=== PATIENT | female | born 1995 | race Caucasian/White ===

== ENCOUNTER 2018-05-13 22:40 | Emergency (ER) | payer MEDICAID, OTHER ==
[~2018-05-13] VITALS: Ht 160 cm; Wt 62.7 kg
[2018-05-13 23:07] VITALS: Ht 160 cm; Wt 62.7 kg
--- NOTE | 2018-05-14 01:24 | ERD ---
ER Documentation Chief Complaint Chief Complaint LRQ PAIN X 2 DAYS HPI This is a 22-year-old female with a nonsignificant past medical history presents ED with complaints of right lower quadrant abdominal pain that is been off and on for the past 3 months. Patient states that the pain started today and she rates it at a 6 out of 10 states that it waxes and wanes in severity. Denies dysuria, hematuria, vaginal bleeding, vaginal discharge, back pain, fever, chills, nausea, vomiting, diarrhea, constipation, hemoptysis, melena, he matochezia, hematemesis, chest pain, shortness breath and all other symptoms. Denies chance of being ROS All systems reviewed and are negative except as per history of present illness. Medications Home Meds Active Scripts Acetaminophen* (Tylophen*) 500 Mg Capsule, 1 CAP PO Q6H PRN for PAIN AND OR ELEVATED TEMP, #20 CAP Prov:ESTER YOUNG PA-C 05/14/18 PMhx/Soc Hx Alcohol Use: No Hx Substance Use: No Hx Tobacco Use: No Smoking Status: Never smoker FmHx Family History: No diabetes Physical Exam Vitals Vital Signs Date Temp Pulse Resp B/P (MAP) Pulse Ox O2 O2 Flow FiO2 Time Delivery Rate 05/13/18 98.2 81 16 121/74 95 23:07 (90) Physical Exam Physical Exam Vitals signs: Reviewed by me. General: Well developed, well nourished, in no acute distress. Patient is awake and alert. Head: Normocephalic, atraumatic. Eyes: Normal conjunctiva, Pupils PERRLA, EOM intact grossly ENT: Pharynx is clear, Moist mucous membranes, external ears, nose and mouth normal Neck: Supple, no masses, lymphadenopathy or JVD Respiratory: Clear to auscultation bilaterally with no wheezing, rhonchi, rales, no distress Cardiovascular: RRR, no murmurs, rubs, or gallops Abdominal: Soft, nondistended, no peritoneal signs, no rigidity, no surgical abd omen, bowel sounds present all 4 quadrants, mild tenderness palpation in the right lower quadrants, nontender in all the quadrants, no rebound tenderness, Miller sign negative Back: No midline tenderness. No flank tenderness Neurologic: Alert and oriented, moving all extremities, normal speech, no focal weakness, no cerebellar signs. Normal mentation Skin: warm and dry, No rash Psych: Normal mood Result Diagram: 05/14/18 0119 05/14/18 0119 Results 24 hrs Laboratory Tests Test 05/14/18 01:19 White Blood Count 8.7 10^3/ul Red Blood Count 4.07 10^6/ul Hemoglobin 11.9 g/dl Hematocrit 36.5 % Mean Corpuscular Volume 89.7 fl Mean Corpuscular Hemoglobin 29.2 pg Mean Corpuscular Hemoglobin Concent 32.6 g/dl Red Cell Distribution Width 12.9 % Platelet Count 254 10^3/UL Mean Platelet Volume 10.3 fl Immature Granulocytes % 0.300 % Neutrophils % 42.5 % Lymphocytes % 47.8 % Monocytes % 6.3 % Eosinophils % 2.6 % Basophils % 0.5 % Nucleated Red Blood Cells % 0.0 /100WBC Immature Granulocytes # 0.030 10^3/ul Neutrophils # 3.7 10^3/ul Lymphocytes # 4.2 10^3/ul Monocytes # 0.6 10^3/ul Eosinophils # 0.2 10^3/ul Basophils # 0.0 10^3/ul Nucleated Red Blood Cells # 0.0 10^3/ul Urine Color YELLOW Urine Clarity CLEAR Urine pH 8.0 Urine Specific [place] 1.018 Urine Ketones NEGATIVE mg/dL Urine Nitrite NEGATIVE mg/dL Urine Bilirubin NEGATIVE mg/dL Urine Urobilinogen 1+ mg/dL Urine Leukocyte Esterase NEGATIVE John/ul Urine Hemoglobin NEGATIVE mg/dL Urine Glucose NEGATIVE mg/dL Urine Total Protein NEGATIVE mg/dl Urine Test NEGATIVE Sodium Level 141 mmol/L Potassium Level 4.0 mmol/L Chloride Level 100 mmol/L Carbon Dioxide Level 27 mmol/L Anion Gap 14 Blood Urea Nitrogen 11 mg/dl Creatinine 0.53 mg/dl Est Glomerular Filtrat Rate mL/min > 60 mL/min Glucose Level 92 mg/dl Calcium Level 9.2 mg/dl Total Bilirubin 0.1 mg/dl Direct Bilirubin 0.00 mg/dl Indirect Bilirubin 0.1 mg/dl Aspartate Amino Transf (AST/SGOT) 31 IU/L Alanine Aminotransferase (ALT/SGPT) 30 IU/L Alkaline Phosphatase 72 IU/L Total Protein 7.5 g/dl Albumin 4.3 g/dl Globulin 3.20 g/dl Albumin/Globulin Ratio 1.34 Lipase 84 U/L [facility] EKG, MONITORS, & DIAGNOSTIC IMAGING: [place] [address] Radiology Main Line: [phone] DIAGNOSTIC IMAGING REPORT Patient: MARY CINTRON : 1995 Age: 22 Sex: F MR #: [id number] DOS: 05/14/18 0101 Ordering MD: ESTER YOUNG PA-C Location: [facility]TE Room/Bed: PROCEDURE: CT Abdomen and Pelvis without contrast. CLINICAL INDICATION: Abdominal/right pelvic pain. TECHNIQUE: Unenhanced CT scan of the abdomen and pelvis was performed on a mu lti-detector high-resolution CT scanner. Coronal and sagittal reformatted images were obtained from the axial source images. Images were reviewed on a high-resolution PACS workstation. The total exam CTDI equals 6 point a mGy and the total exam DLP equals 393.6 mGy-cm. DICOM images are available. One or more of the following dose reduction techniques were utilized: 1.) Automated exposure control 2.) Adjustment of the mA +/- kV according to patient's size 3.) Use of iterative reconstruction technique. COMPARISON: Concurrent pelvic ultrasound. FINDINGS: Evaluation of the solid organs and viscera is technically limited in the absence of contrast. Partially visualized minimal bibasilar pulmonary subsegmental atelectasis. Heart base appears normal. Systemic vasculature appears grossly normal. No pathologic lymphadenopathy identified by imaging criteria. Liver demonstrates normal size and contour, with a 1.5 cm cyst versus hemangioma in the posterior left hepatic lobe (axial image 32, sagittal image 61) and multiple scattered hypoattenuating lesions too small to characterize, likely reflecting cysts. The gallbladder is decompressed without identifiable pericholecystic inflammatory change or extrahepatic biliary ductal dilatation. Pancreas demonstrates normal contour, without identifiable peripancreatic inflammatory change. Spleen is normal in size. Adrenal glands appear normal. Tiny sliding hiatal hernia involving the gastric cardia. The bowel is unobstructed without free air or focal mesenteric inflammatory change. The appendix appears normal. Scattered small left colonic diverticuli without evidence of acute diverticulitis. Unenhanced kidneys demonstrate a 2.1 x 1.5 x 1.6 cm right upper pole hypoattenuating lesion not meeting imaging criteria for simple cyst (axial image 64, coronal image 58, sagittal image 40), as well as a simple - appearing 4.5 cm left upper pole cyst. No nephrolithiasis nor hydronephrosis. The ureters run unobstructed to an incompletely distended urinary bladder which is poorly evaluated on today's exam, with suggestion of mild - moderate diffuse bladder wall thickening which may reflect cystitis in the presence of mild perivesical fat stranding (axial image 150, coronal image 44) and mild dependent pelvic free fluid. The uterus appears age appropriate. No pathologic adnexal mass identified in the absence of contrast. Osseous structures are intact. Superficial soft tissues and musculature appear normal. IMPRESSION: 1. Probable mild - moderate diffuse urinary bladder wall thickening, which may reflect cystitis in the presence of mild perivesical edema and pelvic free fluid, suboptimally evaluated due to incomplete bladder distension. Clinical correlation recommended with consideration for further evaluation with cystoscopy. 2. Right renal upper pole 2.1 cm hypoattenuating mass not meeting imaging criteria for simple cyst. Simple - appearing 4.5 cm left upper pole cyst. Clinical correlation recommended with consideration for further evaluation with renal ultrasound. 3. No nephrolithiasis nor hydronephrosis. 4. Mild left colonic diverticulosis without evidence of acute diverticulitis. The bowel is unobstructed without evidence of perforation or abscess, and the appendix appears normal. 5. Tiny sliding hiatal hernia. 6. Cyst versus hemangioma in the posterior left hepatic lobe with multiple scattered probable hepatic cysts which are too small to characterize. [place] [address] Radiology Main Line: [phone] DIAGNOSTIC IMAGING REPORT Patient: MARY CINTRON : 1995 Age: 22 Sex: F [id number] [id number] DOS: 05/14/18 0101 Ordering MD: ESTER YUONG PA-C Location: FTE Room/Bed: PROCEDURE: Pelvic ultrasound color-flow Doppler of the adnexa. CLINICAL INDICATION: Right sided pelvic pain TECHNIQUE: Multiple sagittal, oblique and transverse real time images were obtained of the lower abdomen and pelvis using a transabdominal as well a transvaginal approach. Color-flow Doppler of the adnexa was performed. COMPARISON: CT abdomen pelvis same day FINDINGS: The uterus is normal limits in size measuring 5.78 x 3.85 x 5.58 cm. Myometrial echoes are homogeneous without focal lesions. Endometrium homogeneous without focal lesion prominent thickness maximal AP diameter 1.08 cm. Ovaries are normal in size the right measuring 4.37 x 1.29 x 2.87 cm and the left measuring 2.98 x 3.36 x 3.15 cm. No ovarian masses. Flow to both ovaries without ultrasonic evidence of ovarian torsion. Small free fluid in the cul-de-sac. No adnexal masses. IMPRESSION: 1. Unremarkable uterus and ovaries without ultrasonic evidence of ovarian torsion. 2. Mild free fluid in the cul-de-sac. 3. No adnexal masses. RPTAT:AAJJ Physician Isidoro Date Time Electronically viewed and signed by Gely Rodriguez Physician on 05/14/2018 03:15 BM/ CC: ESTER YOUNG PA-C [id number] RPTAT: HSAN Liliya Mathias Physician Date Time Electronically viewed and signed by Liliya Mathias Physician on 05/14/2018 03:07 xN/ CC: ESTER YOUNG PA-C [id number] LAB INTERPRETATION: CBC shows no evidence of hemorrhage or infection, hemoglobin mildly decreased at 11.9, hematocrit mildly decreased 36.5 Chemistry shows no evidence of significant electrolyte abnormalities or renal insufficiency Liver function test shows no evidence of acute biliary or hepatic dysfunction Lipase shows no evidence of acute pancreatitis UA unremarkable Urine negative ER COURSE: The patient was offered medication for pain but refuses The patient was stable throughout ED course. I kept the patient and/or family informed of laboratory and diagnostic imaging results throughout the emergency room course. The patient was promptly evaluated and a treatment plan was devised based on H&P and other data. This plan was discussed with the patient who agreed and had no further questions or concerns prior to discharge. MEDICAL DECISION MAKING: Non- woman presenting with abdominal pain. test is negative. Considered causes of female-specific abdominal pain including pelvic inflammatory disease, tubo-ovarian abscess, Beon-Mwkn-Kiztyk, and ovarian torsion. Also considered causes of abdominal pain that are not gender-specific (e.g., appendicitis, volvulus, small bowel obstruction, mesenteric adenitis, acute cholecystitis/choledocholithiasis and other biliary pathology, etc.). Patient well-appearing with normal vital signs. No peritoneal signs and abdomen benign on multiple repeat examinations. Pt well hydrated. Laboratory testing and imaging here reviewed and normal. Patient given strict return precautions for worsening pain, inability to eat/drink, fevers (temperature over 100.4F), or other concerns. Prior to discharge all questions answered. She agrees with treatment plan and understands strict return precautions. Follow-up for repeat abdominal exam within 12 hours. DISPOSITION PLAN: We discussed follow up with the patient's primary care doctor within 24 to 48 hours. Patient counseled regarding my diagnostic impression and care plan. Prior to discharge all questions answered. Pt agrees with treatment plan and understands strict return precautions. Precautionary instructions provided including instructions to return to the ER if not improving or for any worsening or changing symptoms or concerns. SPECIALIST FOLLOW UP RECOMMENDED: None Patient has been advised to follow up with primary care in 1-2 days. Disclaimer: Inadvertent spelling and grammatical errors are likely due to EHR/dictation software use and do not reflect on the overall quality of patient care. Also, please note that the electronic time recorded on this note does not necessarily reflect the actual time of the patient encounter. Departure Diagnosis: Primary Impression: Abdominal pain Abdominal location: right lower quadrant Qualified Codes: R10.31 - Right lower quadrant pain Condition: Stable Patient Instructions: Abdominal Pain Referrals: [facility] Additional Instructions: Paciente aconseja volver a Departamento de urgencias inmediatamente para sntomas nuevos o que empeoran . Paciente aconseja posteriores con el PCP en 1-2 stoddard . Paciente verbaliza la comprehensin y est de acuerdo con el tratamiento y el curso de accin. Si el paciente no tiene ninguna de atencin primaria pueden seguir con [facility] [address] [place] [address] o [facility] + [address] [address] ESTER YOUNG PA-C May 14, 2018 01:24
[2018-05-14] MEDS ORDERED: ACET500C5 PO (01:55)
[2018-05-14 03:50] VITALS: PULSE 88; RESP 20
== END 2018-05-14 03:30 | disposition home or self-care (01) ==
LOC: FTE 22:40
DX: R10.31 Right lower quadrant pain (principal); R10.2 Pelvic and perineal pain
CPT/HCPCS: 36415; 74176; 76830; 76856; 80053; 81003; 83690; 84703; 85025; Z7502

== ENCOUNTER 2018-09-07 15:15 | Emergency (ER) | payer MEDICAID ==
[~2018-09-07] VITALS: Ht 157.5 cm; Wt 59.4 kg
[~2018-09-07 15:15] MED LIST: ACET500C5 PO
[2018-09-07 15:20] VITALS: BP 121/67; PULSE 79; RESP 16; Ht 157.5 cm; Wt 59.4 kg
[2018-09-07] MEDS ORDERED: ONDANSETRON (ODT) 4 MG TAB ODT STA (15:56)
[2018-09-07] MEDS ORDERED: IBUPROFEN 800 MG TAB PO ONE (16:00)
[2018-09-07] MEDS ORDERED: ONDA4TAB14 PO (16:27)
[2018-09-07] MEDS ORDERED: IBUP-1542 PO (16:27)
--- NOTE | 2018-09-07 16:31 | ERD ---
ER Documentation Chief Complaint Chief Complaint HEADACHE WITH VOMITING SINCE LAST NIGHT HPI 23-year-old presents for headache and vomiting x1 day. She states that the headache is rated 8 out of 10 initially. Pain is 6 out of 10. She has not tried any medications. She describes the pain as sharp. Pain is on and off lasting a time. She vomited a few times. No blood noted in the vomit. She denies fevers or chills. Denies any neck pain. No significant past medical history. No other modifying factors noted. No other treatments tried at home. She has had prior similar headaches in the past. ROS All systems reviewed and are negative except as per history of present illness. Medications Home Meds Active Scripts Ondansetron (Ondansetron Odt) 4 Mg Tab.rapdis, 4 MG PO Q6H PRN for NAUSEA AND/OR VOMITING, #15 TAB Prov:REX GAMEZ 09/07/18 Ibuprofen* (Motrin*) 600 Mg Tab, 600 MG PO Q6H PRN for PAIN AND OR ELEVATED TEMP, #30 TAB Prov:GAMEZREX 09/07/18 Acetaminophen* (Tylophen*) 500 Mg Capsule, 1 CAP PO Q6H PRN for PAIN AND OR ELEVATED TEMP, #20 CAP Prov:ESTER YOUNG PA-C 05/14/18 Allergies Allergies: Coded Allergies: No Known Allergy (Unverified , 09/07/18) PMhx/Soc Medical and Surgical Hx: pt denies Medical Hx, pt denies Surgical Hx Hx Alcohol Use: Yes (socially) Hx Substance Use: No Hx Tobacco Use: No Smoking Status: Never smoker FmHx Family History: No coronary disease Physical Exam Vitals Vital Signs Date Temp Pulse Resp B/P (MAP) Pulse Ox O2 O2 Flow FiO2 Time Delivery Rate 09/07/18 97.8 79 16 121/67 98 15:20 (85) Physical Exam Const: No acute distress Head: Atraumatic, no temporal area tenderness to palpation Eyes: Normal Conjunctiva, pupils equal, round, reactive to light bilaterally ENT: Normal External Ears, bilateral tympanic membrane intact without erythema or bulging noted, Nose and Mouth examination normal. No tonsillar swelling or exudate noted Neck: Full range of motion. No meningismus, no bruits noted Resp: Clear to auscultation bilaterally Cardio: Regular rate and rhythm, no murmurs, bilateral radial and dorsalis pedis pulses intact Skin: No petechiae or rashes Ext: No cyanosis, or edema, 5 out of 5 muscular bilateral upper and lower extremities Neur: Awake and alert, bilateral upper and lower extremity sensation intact Psych: Normal Mood and Affect Results 24 hrs Current Medications Medications Dose Sig/Adrian Start Time Status Last (Trade) Ordered Route PRN Stop Time Admin Dose Reason Admin Ibuprofen 800 mg ONCE ONCE 09/07/18 DC 09/07/18 (Motrin) PO 16:00 16:03 09/07/18 16:01 Ondansetron 4 mg ONCE STAT 09/07/18 DC 09/07/18 HCl (Zofran ODT 15:56 16:02 Odt) 09/07/18 15:57 Procedures/MDM Medical Decision Making: Differential diagnosis includes but not limited to primary headache, subarachnoid hemorrhage, meningitis, temporal arteritis, glaucoma, hypertension, cerebral ischemia, carotid or vertebral arterial dissection, brain tumor. Patient appeared well on physical examination, nontoxic appearing. No history of fever. There is low suspicion for meningitis. Given no temporal area tenderness to palpation, low suspicion for temporal arteritis. Patient has no vision changes and pupils are reactive bilaterally, low suspicion for glaucoma. There is also no focal neurologic deficits to suggest a brain tumor. Patient has normal sensation and muscle strength, low suspicion for cerebral ischemia. Given headache is similar to prior headaches, patient possibly has a primary headache. In the ER patient given Motrin and Zofran Symptoms improved with treatment. Patient given prescription for supportive medication(s). Patient advised to follow up with PCP in 1-2 days. Patient advised to return to ED for new or worsening symptoms. Patient stable on discharge from the ED. Disclaimer: Inadvertent spelling and grammatical errors are likely due to EHR/dictation software use and do not reflect on the overall quality of patient care. Also, please note that the electronic time recorded on this note does not necessarily reflect the actual time of the patient encounter. Departure Diagnosis: Primary Impression: Headache Additional Impression: Vomiting Condition: Fair Patient Instructions: Self-Care for Headaches Referrals: [facility] YOU HAVE RECEIVED A MEDICAL SCREENING EXAM AND THE RESULTS INDICATE THAT YOU DO NOT HAVE A CONDITION THAT REQUIRES URGENT TREATMENT IN THE EMERGENCY DEPARTMENT. FURTHER EVALUATION AND TREATMENT OF YOUR CONDITION CAN WAIT UNTIL YOU ARE SEEN IN YOUR DOCTORS OFFICE WITHIN THE NEXT 1-2 DAYS. IT IS YOUR RESPONSIBILITY TO MAKE AN APPOINTMENT FOR FOLOW-UP CARE. IF YOU HAVE A PRIMARY DOCTOR --you should call your primary doctor and schedule an appointment IF YOU DO NOT HAVE A PRIMARY DOCTOR YOU CAN CALL OUR PHYSICIAN REFERRAL HOTLINE AT IF YOU CAN NOT AFFORD TO SEE A PHYSICIAN YOU CAN CHOSE FROM THE FOLLOWING [facility] [address] [facility] [address] [facility] [address] [facility] [address] [facility] [address] [facility]. [address] Additional Instructions: Llame al doctor MAANA y parveen igor EMILY PARA DENTRO DE 1-2 CELAYA.Dgale a la secretaria que nosotros le instruimos hacer esta emily.Avise o llame si brandon condicin se empeora antes de la emily. Regresa aqui si peor o no mejor. REX GAMEZ DO September 07, 2018 16:31
== END 2018-09-07 16:39 | disposition home or self-care (01) ==
LOC: FTE 15:15
DX: R51 Headache (principal); R11.10 Vomiting, unspecified
CPT/HCPCS: Z7502; Z7610; 99283